=== PATIENT | male | born 1935 | race Caucasian/White ===

== ENCOUNTER 2018-06-17 14:03 | Outpatient (REF) | payer MEDICARE, MEDICAID, SELFPAY ==
[2018-06-17 21:02] LABS: Abs Immature Grans 0.03 k/cumm (0.0-0.09); Absolute Basophil Count 0.03 k/cumm (0.0-0.2); Absolute Lymphocyte Count 1.11 k/cumm (1.2-3.4); Absolute Monocyte Count 1.03 k/cumm (0.11-0.7); Absolute Neutrophil Count 7.17 k/cumm (1.2-6.7); Basophils % 0.3; Eosinophils % 1.1; HCT 35.8 % (40.0-50.0); Immature Grans % 0.3; Lymphocytes % 11.7; Mean Corp. HGB Concentration 33.5 g/dL (32.0-36.0); Mean Corpuscular Hemoglobin 29.3 pg (27.0-33.0); Mean Corpuscular Volume 87.5 fL (80-95); Mean Platelet Volume 11.5 fL (8.0-11.0); Monocytes % 10.9; Neutrophils % 75.7; Platelet Count 223 x1000/uL (130-400); RBC 4.09 m/cumm (4.50-6.00); RBC Distribution Width 13.2 % (11.8-14.1); White Blood Cell Count 9.47 k/cumm (4.4-10.8)
[2018-06-17 21:32] LABS: C-Reactive Protein 10.95 mg/dL (0.0-0.3)
[2018-06-17 21:48] LABS: ESR 73 MM/HR (1-20)
== END 2018-06-17 14:23 ==
LOC: NCHCN 14:03
PROVIDERS: PCP Nurse Practitioner Family; Visit Provider Nurse Practitioner Family
DX: M25.512 Pain in left shoulder (principal); M89.8X8 Other specified disorders of bone, other site
CPT/HCPCS: 85652; 85025; 86140

== ENCOUNTER 2018-07-28 11:27 | Outpatient (REF) | payer MEDICARE, MEDICAID, SELFPAY ==
[2018-07-28 22:08] LABS: Abs Immature Grans 0.03 k/cumm (0.0-0.09); Absolute Basophil Count 0.03 k/cumm (0.0-0.2); Absolute Lymphocyte Count 1.68 k/cumm (1.2-3.4); Absolute Monocyte Count 0.58 k/cumm (0.11-0.7); Absolute Neutrophil Count 4.19 k/cumm (1.2-6.7); Basophils % 0.5; Eosinophils % 1.5; HCT 37.5 % (40.0-50.0); HGB 12.4 g/dL (13.5-17.5); Immature Grans % 0.5; Lymphocytes % 25.4; Mean Corp. HGB Concentration 33.1 g/dL (32.0-36.0); Mean Corpuscular Hemoglobin 28.6 pg (27.0-33.0); Mean Corpuscular Volume 86.4 fL (80-95); Mean Platelet Volume 12.2 fL (8.0-11.0); Monocytes % 8.8; Neutrophils % 63.3; Platelet Count 176 x1000/uL (130-400); RBC 4.34 m/cumm (4.50-6.00); RBC Distribution Width 14.4 % (11.8-14.1); White Blood Cell Count 6.61 k/cumm (4.4-10.8)
[2018-07-28 22:13] LABS: ALT 16 U/L (12-78); AST 12 U/L (15-37); Albumin 3.8 g/dL (3.4-5.0); Alkaline Phosphatase 97 U/L (46-116); Anion Gap 8.1 mmol/L (3-11); BUN 16 mg/dL (7-18); Bilirubin, Total 0.6 mg/dL (0.2-1.0); CO2 29.9 mmol/L (21.0-32.0); CREATININE 1.16 mg/dL (0.70-1.30); Calcium 9.2 mg/dL (8.5-10.1); Chloride 101 mmol/L (98-107); Glucose 102 mg/dL (70-100); LDH 167 U/L (85-227); Potassium 3.6 mmol/L (3.5-5.1); Sodium 139 mmol/L (136-145)
== END 2018-07-28 11:47 ==
LOC: LBN 11:27
PROVIDERS: PCP Nurse Practitioner Family; Visit Provider Internal Medicine Hematology & Oncology
DX: C82.08 Follicular lymphoma grade I, lymph nodes of multiple sites (principal)
CPT/HCPCS: 80053; 83615; 85025

== ENCOUNTER 2018-08-20 15:58 | Outpatient (REF) | payer MEDICARE, MEDICAID, SELFPAY ==
[2018-08-20 21:19] LABS: Abs Immature Grans 0.01 k/cumm (0.0-0.09); Absolute Basophil Count 0.03 k/cumm (0.0-0.2); Absolute Eosinophil Count 0.11 k/cumm (0.0-0.7); Absolute Lymphocyte Count 1.44 k/cumm (1.2-3.4); Absolute Monocyte Count 0.65 k/cumm (0.11-0.7); Absolute Neutrophil Count 5.32 k/cumm (1.2-6.7); Basophils % 0.4; Eosinophils % 1.5; HCT 36.5 % (40.0-50.0); HGB 12.1 g/dL (13.5-17.5); Immature Grans % 0.1; Mean Corp. HGB Concentration 33.2 g/dL (32.0-36.0); Mean Corpuscular Hemoglobin 28.3 pg (27.0-33.0); Mean Corpuscular Volume 85.3 fL (80-95); Mean Platelet Volume 11.4 fL (8.0-11.0); Monocytes % 8.6; Neutrophils % 70.4; Platelet Count 240 x1000/uL (130-400); RBC 4.28 m/cumm (4.50-6.00); RBC Distribution Width 14.1 % (11.8-14.1); White Blood Cell Count 7.56 k/cumm (4.4-10.8)
[2018-08-20 22:00] LABS: ESR 29 MM/HR (1-20)
== END 2018-08-20 16:18 ==
LOC: NCHCN 15:58
PROVIDERS: PCP Nurse Practitioner Family; Visit Provider Family Medicine
DX: R53.83 Other fatigue (principal)
CPT/HCPCS: 85652; 84443; 85025

== ENCOUNTER 2019-02-18 09:49 | Outpatient (REF) | payer MEDICARE, MEDICAID, SELFPAY ==
[2019-02-18 21:21] LABS: Abs Immature Grans 0.01 k/cumm (0.0-0.09); Absolute Basophil Count 0.03 k/cumm (0.0-0.2); Absolute Eosinophil Count 0.12 k/cumm (0.0-0.7); Absolute Monocyte Count 0.36 k/cumm (0.11-0.7); Absolute Neutrophil Count 3.05 k/cumm (1.2-6.7); Basophils % 0.6; Eosinophils % 2.5; HCT 40.4 % (40.0-50.0); HGB 13.3 g/dL (13.5-17.5); Immature Grans % 0.2; Lymphocytes % 25.2; Mean Corp. HGB Concentration 32.9 g/dL (32.0-36.0); Mean Corpuscular Hemoglobin 28.3 pg (27.0-33.0); Mean Platelet Volume 11.6 fL (8.0-11.0); Monocytes % 7.5; Platelet Count 224 x1000/uL (130-400); RBC Distribution Width 14.2 % (11.8-14.1); White Blood Cell Count 4.77 k/cumm (4.4-10.8)
[2019-02-18 21:30] LABS: ALT 22 U/L (12-78); AST 16 U/L (15-37); Albumin 3.9 g/dL (3.4-5.0); Alkaline Phosphatase 120 U/L (46-116); Anion Gap 7.2 mmol/L (3-11); BUN 13 mg/dL (7-18); Bilirubin, Total 0.4 mg/dL (0.2-1.0); CO2 28.8 mmol/L (21.0-32.0); CREATININE 0.92 mg/dL (0.70-1.30); Calcium 8.8 mg/dL (8.5-10.1); Chloride 105 mmol/L (98-107); Glucose 127 mg/dL (70-100); Potassium 4.3 mmol/L (3.5-5.1); Sodium 141 mmol/L (136-145); Total Protein 6.9 g/dL (6.4-8.2)
[2019-02-18 21:59] LABS: LDH 177 U/L (85-227)
== END 2019-02-18 10:09 ==
LOC: LBN 09:49
PROVIDERS: PCP Nurse Practitioner Family; Visit Provider Internal Medicine Hematology & Oncology
DX: C82.08 Follicular lymphoma grade I, lymph nodes of multiple sites (principal)
CPT/HCPCS: 80053; 83615; 85025

== ENCOUNTER 2019-08-16 21:29 | Outpatient (REF) | payer MEDICARE, MEDICAID, SELFPAY ==
[2019-08-16 21:48] LABS: Abs Immature Grans 0.03 k/cumm (0.0-0.09); Absolute Basophil Count 0.04 k/cumm (0.0-0.2); Absolute Lymphocyte Count 1.54 k/cumm (1.2-3.4); Absolute Monocyte Count 0.48 k/cumm (0.11-0.7); Absolute Neutrophil Count 3.03 k/cumm (1.2-6.7); Basophils % 0.8; Eosinophils % 3.8; HCT 36.9 % (40.0-50.0); Immature Grans % 0.6 %; Lymphocytes % 28.9; Mean Corp. HGB Concentration 32.5 g/dL (32.0-36.0); Mean Corpuscular Hemoglobin 28.8 pg (27.0-33.0); Mean Corpuscular Volume 88.5 fL (80-95); Mean Platelet Volume 11.8 fL (8.0-11.0); Neutrophils % 56.9; Platelet Count 223 x1000/uL (130-400); RBC 4.17 m/cumm (4.50-6.00); RBC Distribution Width 14.2 % (11.8-14.1); White Blood Cell Count 5.32 k/cumm (4.4-10.8)
[2019-08-16 22:40] LABS: ALT 18 U/L (16-63); AST 13 U/L (15-37); Albumin 3.7 g/dL (3.4-5.0); Alkaline Phosphatase 111 U/L (46-116); Anion Gap 8.4 mmol/L (3-11); BUN 13 mg/dL (7-18); Bilirubin, Total 0.4 mg/dL (0.2-1.0); CO2 27.6 mmol/L (21.0-32.0); CREATININE 1.11 mg/dL (0.70-1.30); Calcium 8.8 mg/dL (8.5-10.1); Chloride 104 mmol/L (98-107); Glucose 172 mg/dL (74-106); LDH 174 U/L (85-227); Potassium 4.1 mmol/L (3.5-5.1); Sodium 140 mmol/L (136-145); Total Protein 6.6 g/dL (6.4-8.2)
== END 2019-08-16 21:49 ==
LOC: LBN 21:29
PROVIDERS: PCP Nurse Practitioner Family; Visit Provider Internal Medicine Hematology & Oncology
DX: C82.08 Follicular lymphoma grade I, lymph nodes of multiple sites (principal)
CPT/HCPCS: 80053; 83615; 85025

== ENCOUNTER 2019-08-31 01:09 | Outpatient (CLI) | payer MEDICARE, MEDICAID, SELFPAY ==
[2019-08-31 09:23] LABS: ALT 17 U/L (16-63); AST 16 U/L (15-37); Albumin 3.8 g/dL (3.4-5.0); Alkaline Phosphatase 111 U/L (46-116); Anion Gap 9.8 mmol/L (3-11); BUN 17 mg/dL (7-18); Bilirubin, Total 0.4 mg/dL (0.2-1.0); CO2 28.2 mmol/L (21.0-32.0); CREATININE 1.02 mg/dL (0.70-1.30); Calcium 8.7 mg/dL (8.5-10.1); Chloride 102 mmol/L (98-107); Glucose 131 mg/dL (74-106); Potassium 3.9 mmol/L (3.5-5.1); Sodium 140 mmol/L (136-145); Total Protein 7.2 g/dL (6.4-8.2)
--- NOTE | 2019-08-31 10:19 | DI.CT_ITS ---
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 TECHNIQUE: Imaging Protocol: Axial computed tomography images of the with coronal and sagittal refo rmatted images were created and reviewed CONTRAST MATERIAL: Intravenous: Omnipaque 350 Contrast volume:100 mL contrast route:IV - Oral: Yes COMPARISON: The prior examinations were not available at this time for comparison. FINDINGS: CHEST: Tracheobronchial tree: Patent where visualized. Mediastinum and Lo: No dominant adenopathy or fluid collection. Pulmonary parenchyma: No consolidation or dominant measurable mass. There is scarring in the right a pex. Mild emphysematous changes are seen in the lungs. Dependent atelectatic changes are seen in th e lung bases. Pleura: No effusion or pneumothorax. Aorta: Mild atherosclerosis. No aneurysmal dilatation. Heart: No cardiomegaly or significant pericardial effusion. Mild coronary artery calcification. Lymph nodes: Within normal limits. Bones: Chronic changes. No aggressive osseous lesion is identified. ABDOMEN: Liver: Normal density. No measurable mass. Gallbladder and biliary tract: No radiodense calculus or dilation. Pancreas: Normal density, no abnormal calcifications or inflammatory process. Spleen: Normal. Note is made of a small accessory spleen. Kidneys: Normal size, contour and axis. No radiodense stones or obstructive uropathy. Bilateral simpl e renal cysts. Adrenal glands: No masses seen. Lymph nodes: There is prominent retroperitoneal adenopathy. Enlarged left periaortic adenopathy is p resent, the largest aggregate measures 2.9 cm transverse by 1.6 cm AP by 4.7 cm craniocaudad. (Serie s 9, image 380). There are enlarged lymph nodes in the central mesentery. The largest measures 2.3 x 1.0 cm. (Series 9, image 414). There is aortic caval adenopathy present. The largest measures 1 .9 x 0.7 cm. (Series 9, image 406). Aorta: Abdominal portion non-dilated. Mild atherosclerosis. Retroaortic left renal vein. PELVIS: Bladder: Incompletely distended. The apparent bowel wall thickening is likely due to decreased diste nsion. Inflammatory or infectious process cannot be entirely excluded. Please correlate clinically. Bowel: Colonic diverticulosis. No evidence of acute diverticulitis. No evidence of bowel obstruction . Normal appendix is visualized. Peritoneal cavity: No ascites, collection or mesenteric inflammatory response. Reproductive organs: Within normal limits. Bones: Degenerative changes present IMPRESSION: 1. Retroperitoneal and mesenteric adenopathy. 2. No evidence of thoracic adenopathy. DATA REPOSITORY: All CT scans at this facility are submitted to the National Radiology Data Registry (NRDR) Dose Index Registry (DIR) with the [employer] ([employer]). RADIATION OPTIMIZATION: All CT scans at this facility use at least one of these dose optimization te chniques: automated exposure control; mA and/or kV adjustment per patient size (includes targeted exa ms where dose is matched to clinical indication); or iterative reconstruction.
[2019-08-31] MEDS: Omnipaque 350 MG/ML 100 ML BTL IJ (10:21)
[2019-08-31] MEDS: Omnipaque 350 MG/ML 50 ML BTL PO (10:22)
== END 2019-08-31 01:29 ==
PROVIDERS: Internal Medicine Hematology & Oncology; PCP Nurse Practitioner Family; Visit Provider Nurse Practitioner Family
DX: C82.08 Follicular lymphoma grade I, lymph nodes of multiple sites (principal); J98.11 Atelectasis; N28.1 Cyst of kidney, acquired; R59.0 Localized enlarged lymph nodes
CPT/HCPCS: 74177; 80053; 71260; J3490; Q9967

== ENCOUNTER 2020-02-21 10:20 | Outpatient (REF) | payer MEDICARE, MEDICAID, SELFPAY ==
[2020-02-21 21:04] LABS: Abs Immature Grans 0.03 10^3/uL (0.0-0.06); Absolute Basophil Count 0.07 10^3/uL (0.0-0.2); Absolute Eosinophil Count 0.16 10^3/uL (0.0-0.7); Absolute Lymphocyte Count 1.41 10^3/uL (1.2-3.4); Absolute Monocyte Count 0.58 10^3/uL (0.1-0.8); Absolute Neutrophil Count 4.64 10^3/uL (1.2-6.7); Eosinophils % 2.3; HCT 38.7 % (40.0-50.0); HGB 12.7 g/dL (13.5-17.5); Immature Grans % 0.4; Lymphocytes % 20.5; MCH 29.1 pg (27.0-33.0); MCHC 32.8 % (32.0-36.0); MCV 88.6 fL (80-95); MPV 11.5 fL (8.0-11.0); Monocytes % 8.4; Neutrophils % 67.4; Nucleated RBC 0 %; Platelet Count 210 10^3/uL (130-400); RBC 4.37 10^6/uL (4.36-5.78); RDW 13.5 % (11.8-14.1); RDW-SD 43.7 fL; WBC 6.89 10^3/uL (4.4-10.8)
[2020-02-21 21:14] LABS: ALT 24 U/L (16-63); AST 17 U/L (15-37); Alkaline Phosphatase 102 U/L (46-116); Anion Gap 9.3 mmol/L (3-11); BUN 19 mg/dL (7-18); Bilirubin, Total 0.5 mg/dL (0.2-1.0); CO2 26.7 mmol/L (21.0-32.0); CREATININE 1.02 mg/dL (0.70-1.30); Chloride 103 mmol/L (98-107); Glucose 121 mg/dL (74-106); LDH 182 U/L (85-227); Potassium 4.2 mmol/L (3.5-5.1); Sodium 139 mmol/L (136-145); Total Protein 7.1 g/dL (6.4-8.2)
== END 2020-02-21 10:40 ==
LOC: LBN 10:20
PROVIDERS: PCP Nurse Practitioner Family; Visit Provider Internal Medicine Hematology & Oncology
DX: C82.08 Follicular lymphoma grade I, lymph nodes of multiple sites (principal)
CPT/HCPCS: 80053; 83615; 85025

== ENCOUNTER 2020-02-27 13:54 | Outpatient (REF) | payer MEDICARE, MEDICAID, SELFPAY ==
[2020-02-27 20:50] LABS: Calculated LDL 99 mg/dL (<100); Cholesterol 208 mg/dL (<200); HDL Cholesterol 42 mg/dL (40-60); Triglyceride 336 mg/dL (<150)
== END 2020-02-27 14:14 ==
LOC: NCHCN 13:54
PROVIDERS: PCP Nurse Practitioner Family; Visit Provider Internal Medicine
DX: E78.5 Hyperlipidemia, unspecified (principal)
CPT/HCPCS: 80061

== ENCOUNTER 2020-06-20 13:33 | Outpatient (REF) | payer MEDICARE, MEDICAID, SELFPAY ==
[2020-06-20 22:37] LABS: Cholesterol 250 mg/dL (<200); HDL Cholesterol 43 mg/dL (40-60); Triglyceride 437 mg/dL (<150)
[2020-06-20 23:04] LABS: LDL CHOLESTEROL 99 mg/dL (<100)
[2020-06-21 19:17] LABS: PSA, Diagnostic 5.4 ng/mL (0.0-6.5)
== END 2020-06-20 13:53 ==
LOC: NCHCN 13:33
PROVIDERS: PCP Nurse Practitioner Family; Visit Provider Internal Medicine
DX: E78.5 Hyperlipidemia, unspecified (principal); C61 Malignant neoplasm of prostate
CPT/HCPCS: 80061; 83721; 84153

== ENCOUNTER 2020-07-10 16:49 | Outpatient (REF) | payer MEDICARE, MEDICAID, SELFPAY ==
[2020-07-10 21:56] LABS: Anion Gap 10.1 mmol/L (3-11); BUN 17 mg/dL (7-18); CO2 26.9 mmol/L (21.0-32.0); CREATININE 1.02 mg/dL (0.70-1.30); Calcium 9.3 mg/dL (8.5-10.1); Chloride 103 mmol/L (98-107); Glucose 130 mg/dL (74-106); NT-proBNP 207 pg/mL (<300); Potassium 3.9 mmol/L (3.5-5.1); Sodium 140 mmol/L (136-145)
== END 2020-07-10 17:09 ==
LOC: LBN 16:49
PROVIDERS: PCP Nurse Practitioner Family; Visit Provider Internal Medicine Cardiovascular Disease
DX: R06.00 Dyspnea, unspecified (principal); I50.32 Chronic diastolic (congestive) heart failure; I25.10 Atherosclerotic heart disease of native coronary artery without angina pectoris
CPT/HCPCS: 80048; 83880

== ENCOUNTER 2020-10-29 10:22 | Outpatient (REF) | payer MEDICARE, MEDICAID, SELFPAY ==
[2020-10-29 13:31] LABS: Abs Immature Grans 0.03 10^3/uL (0.0-0.06); Absolute Basophil Count 0.05 10^3/uL (0.0-0.2); Absolute Eosinophil Count 0.17 10^3/uL (0.0-0.7); Absolute Lymphocyte Count 1.37 10^3/uL (1.2-3.4); Absolute Monocyte Count 0.46 10^3/uL (0.1-0.8); Absolute Neutrophil Count 3.31 10^3/uL (1.2-6.7); Basophils % 0.9; Eosinophils % 3.2; HCT 37.6 % (40.0-50.0); HGB 12.5 g/dL (13.5-17.5); Immature Grans % 0.6; Lymphocytes % 25.4; MCH 29.2 pg (27.0-33.0); MCHC 33.2 % (32.0-36.0); MCV 87.9 fL (80-95); MPV 11.6 fL (8.0-11.0); Monocytes % 8.5; Neutrophils % 61.4; Nucleated RBC 0 %; Platelet Count 189 10^3/uL (130-400); RBC 4.28 10^6/uL (4.36-5.78); RDW 13.7 % (11.8-14.1); RDW-SD 44.2 fL; WBC 5.39 10^3/uL (4.4-10.8)
[2020-10-29 13:42] LABS: Iron 60 ug/dL (65-175); Total Iron Binding Capacity 305 ug/dL (250-450); Transferrin Sat 20 % (20-55)
[2020-10-29 13:49] LABS: ALT 27 U/L (16-63); AST 19 U/L (15-37); Alkaline Phosphatase 110 U/L (46-116); Anion Gap 10.4 mmol/L (3-11); BUN 18 mg/dL (7-18); Bilirubin, Total 0.4 mg/dL (0.2-1.0); CO2 27.6 mmol/L (21.0-32.0); Calcium 9.1 mg/dL (8.5-10.1); Chloride 102 mmol/L (98-107); Glucose 137 mg/dL (74-106); LDH 199 U/L (85-227); NT-proBNP 168 pg/mL (<300); Potassium 4.2 mmol/L (3.5-5.1); Sodium 140 mmol/L (136-145); Total Protein 7.1 g/dL (6.4-8.2)
[2020-10-29 14:29] LABS: Cholesterol 235 mg/dL (<200); Ferritin 132 ng/mL (26-388); HDL Cholesterol 38 mg/dL (40-60); Triglyceride 417 mg/dL (<150)
[2020-10-29 14:39] LABS: LDL CHOLESTEROL 89 mg/dL (<100)
[2020-10-29 15:19] LABS: Hemoglobin A1C 6.3 % (<5.7)
[2020-10-29 22:06] LABS: PSA, Diagnostic 7.4 ng/mL (0.0-6.5)
== END 2020-10-29 10:23 | disposition home or self-care (01) ==
LOC: LBN 10:22
PROVIDERS: PCP Nurse Practitioner Family; Visit Provider Internal Medicine Cardiovascular Disease
DX: I25.10 Atherosclerotic heart disease of native coronary artery without angina pectoris (principal); C61 Malignant neoplasm of prostate; I95.89 Other hypotension; R06.00 Dyspnea, unspecified; R73.9 Hyperglycemia, unspecified
CPT/HCPCS: 80053; 80061; 83721; 82728; 83036; 83540; 83550; 83615; 83880; 84153; 85025

== ENCOUNTER 2021-02-22 09:59 | Outpatient (REF) | payer MEDICARE, MEDICAID, SELFPAY ==
[2021-02-22 22:48] LABS: PSA, Diagnostic 10.6 ng/mL (0.0-6.5)
== END 2021-02-22 10:00 | disposition home or self-care (01) ==
LOC: LBN 09:59
PROVIDERS: PCP Internal Medicine; Visit Provider Radiology Radiation Oncology
DX: C61 Malignant neoplasm of prostate (principal)
CPT/HCPCS: 84153

== ENCOUNTER 2021-04-23 14:01 | Outpatient (REF) | payer MEDICARE, MEDICAID, SELFPAY ==
[2021-04-23 14:58] LABS: Abs Immature Grans 0.01 10^3/uL (0.0-0.06); Absolute Basophil Count 0.05 10^3/uL (0.0-0.2); Absolute Eosinophil Count 0.08 10^3/uL (0.0-0.7); Absolute Monocyte Count 0.46 10^3/uL (0.1-0.8); Absolute Neutrophil Count 3.59 10^3/uL (1.2-6.7); Basophils % 0.9; Eosinophils % 1.4; HCT 37.6 % (40.0-50.0); HGB 12.4 g/dL (13.5-17.5); Immature Grans % 0.2; MCH 28.4 pg (27.0-33.0); MCV 86.2 fL (80-95); MPV 11.5 fL (8.0-11.0); Monocytes % 8.2; Neutrophils % 64.3; Nucleated RBC 0 %; Platelet Count 187 10^3/uL (130-400); RBC 4.36 10^6/uL (4.36-5.78); RDW 13.6 % (11.8-14.1); RDW-SD 43.8 fL; WBC 5.59 10^3/uL (4.4-10.8)
[2021-04-23 15:02] LABS: ALT 23 U/L (16-63); AST 16 U/L (15-37); Albumin 3.9 g/dL (3.4-5.0); Alkaline Phosphatase 112 U/L (46-116); Anion Gap 7.1 mmol/L (3-11); BUN 17 mg/dL (7-18); Bilirubin, Total 0.4 mg/dL (0.2-1.0); CO2 28.9 mmol/L (21.0-32.0); Calcium 8.8 mg/dL (8.5-10.1); Chloride 104 mmol/L (98-107); Glucose 121 mg/dL (74-106); LDH 167 U/L (85-227); Sodium 140 mmol/L (136-145)
[2021-04-23 22:23] LABS: PSA, Diagnostic 10.8 ng/mL (0.0-6.5)
[2021-04-27 11:02] LABS: Testosterone, Total 11 ng/dL (240-950)
== END 2021-04-23 14:02 | disposition home or self-care (01) ==
LOC: LBN 14:01
PROVIDERS: PCP Internal Medicine; Visit Provider Internal Medicine Hematology & Oncology
DX: C61 Malignant neoplasm of prostate (principal); C82.08 Follicular lymphoma grade I, lymph nodes of multiple sites
CPT/HCPCS: 80053; 84403; 83615; 84153; 85025

== ENCOUNTER 2021-10-01 01:25 | Outpatient (CLI) | payer MEDICARE, MEDICAID, SELFPAY ==
[2021-10-01 13:04] LABS: Abs Immature Grans 0.04 10^3/uL (0.0-0.06); Absolute Basophil Count 0.07 10^3/uL (0.0-0.2); Absolute Eosinophil Count 0.22 10^3/uL (0.0-0.7); Absolute Lymphocyte Count 1.84 10^3/uL (1.2-3.4); Absolute Monocyte Count 0.64 10^3/uL (0.1-0.8); Basophils % 0.8; Eosinophils % 2.6; HCT 38.1 % (40.0-50.0); HGB 12.8 g/dL (13.5-17.5); Immature Grans % 0.5; Lymphocytes % 21.6; MCH 29.2 pg (27.0-33.0); MCHC 33.6 % (32.0-36.0); MCV 86.8 fL (80-95); MPV 11.1 fL (8.0-11.0); Monocytes % 7.5; Nucleated RBC 0 %; Platelet Count 179 10^3/uL (130-400); RBC 4.39 10^6/uL (4.36-5.78); RDW 13.6 % (11.8-14.1); RDW-SD 43.2 fL; WBC 8.51 10^3/uL (4.4-10.8)
[2021-10-01 13:13] LABS: ALT 21 U/L (16-63); AST 13 U/L (15-37); Alkaline Phosphatase 101 U/L (46-116); Anion Gap 7.2 mmol/L (3-11); BUN 14 mg/dL (7-18); Bilirubin, Total 0.5 mg/dL (0.2-1.0); CO2 26.8 mmol/L (21.0-32.0); Calcium 8.7 mg/dL (8.5-10.1); Chloride 103 mmol/L (98-107); Glucose 110 mg/dL (74-106); Potassium 4.1 mmol/L (3.5-5.1); Sodium 137 mmol/L (136-145); Total Protein 7.6 g/dL (6.4-8.2)
[2021-10-04 11:44] LABS: Testosterone, Total <7.0 ng/dL (240-950)
== END 2021-10-01 01:26 | disposition home or self-care (01) ==
PROVIDERS: PCP Internal Medicine; Visit Provider Internal Medicine
DX: C61 Malignant neoplasm of prostate (principal); C77.2 Secondary and unspecified malignant neoplasm of intra-abdominal lymph nodes
CPT/HCPCS: 36415; 80053; 84153; 84403; 85025

== ENCOUNTER 2021-10-22 04:24 | Outpatient (CLI) | payer MEDICARE, MEDICAID, SELFPAY ==
[2021-10-22 13:13] LABS: Abs Immature Grans 0.01 10^3/uL (0.0-0.06); Absolute Basophil Count 0.05 10^3/uL (0.0-0.2); Absolute Eosinophil Count 0.19 10^3/uL (0.0-0.7); Absolute Lymphocyte Count 1.65 10^3/uL (1.2-3.4); Absolute Monocyte Count 0.47 10^3/uL (0.1-0.8); Absolute Neutrophil Count 3.67 10^3/uL (1.2-6.7); Basophils % 0.8; Eosinophils % 3.1; HCT 37.4 % (40.0-50.0); HGB 12.5 g/dL (13.5-17.5); Immature Grans % 0.2; Lymphocytes % 27.3; MCH 29.1 pg (27.0-33.0); MCHC 33.4 % (32.0-36.0); MCV 87.2 fL (80-95); MPV 10.5 fL (8.0-11.0); Monocytes % 7.8; Neutrophils % 60.8; Nucleated RBC 0 %; Platelet Count 182 10^3/uL (130-400); RBC 4.29 10^6/uL (4.36-5.78); RDW 13.9 % (11.8-14.1); RDW-SD 44.8 fL; WBC 6.04 10^3/uL (4.4-10.8)
[2021-10-22 13:40] LABS: ALT 23 U/L (16-63); AST 16 U/L (15-37); Albumin 3.9 g/dL (3.4-5.0); Alkaline Phosphatase 97 U/L (46-116); Anion Gap 5.9 mmol/L (3-11); BUN 14 mg/dL (7-18); Bilirubin, Total 0.6 mg/dL (0.2-1.0); CO2 28.1 mmol/L (21.0-32.0); Calcium 8.7 mg/dL (8.5-10.1); Chloride 104 mmol/L (98-107); Glucose 147 mg/dL (74-106); Sodium 138 mmol/L (136-145); Total Protein 7.2 g/dL (6.4-8.2)
[2021-10-23 15:01] LABS: PSA, Ultrasensitive 17.2 ng/mL (<= 7.2)
[2021-10-27 13:01] LABS: Testosterone, Total <7.0 ng/dL (240-950)
== END 2021-10-22 04:25 | disposition home or self-care (01) ==
LOC: LBO 04:24
PROVIDERS: PCP Internal Medicine; Visit Provider Internal Medicine
DX: C61 Malignant neoplasm of prostate (principal); C77.2 Secondary and unspecified malignant neoplasm of intra-abdominal lymph nodes
CPT/HCPCS: 36415; 80053; 84153; 84403; 85025

== ENCOUNTER 2021-11-19 01:59 | Outpatient (CLI) | payer MEDICARE, MEDICAID, SELFPAY ==
[2021-11-19 10:09] LABS: Abs Immature Grans 0.03 10^3/uL (0.0-0.06); Absolute Basophil Count 0.04 10^3/uL (0.0-0.2); Absolute Eosinophil Count 0.16 10^3/uL (0.0-0.7); Absolute Lymphocyte Count 1.57 10^3/uL (1.2-3.4); Absolute Monocyte Count 0.57 10^3/uL (0.1-0.8); Absolute Neutrophil Count 3.49 10^3/uL (1.2-6.7); Basophils % 0.7; Eosinophils % 2.7; HCT 38.5 % (40.0-50.0); HGB 12.6 g/dL (13.5-17.5); Immature Grans % 0.5; Lymphocytes % 26.8; MCH 28.7 pg (27.0-33.0); MCHC 32.7 % (32.0-36.0); MCV 88 fL (80-95); MPV 10.7 fL (8.0-11.0); Monocytes % 9.7; Neutrophils % 59.6; Platelet Count 171 10^3/uL (130-400); RBC 4.39 10^6/uL (4.36-5.78); RDW 13.5 % (11.8-14.1); RDW-SD 43.8 fL; WBC 5.86 10^3/uL (4.4-10.8)
[2021-11-19 10:22] LABS: ALT 19 U/L (16-63); AST 17 U/L (15-37); Albumin 3.8 g/dL (3.4-5.0); Alkaline Phosphatase 112 U/L (46-116); Anion Gap 7.2 mmol/L (3-11); BUN 16 mg/dL (7-18); Bilirubin, Total 0.5 mg/dL (0.2-1.0); CO2 27.8 mmol/L (21.0-32.0); CREATININE 0.9 mg/dL (0.70-1.30); Calcium 8.5 mg/dL (8.5-10.1); Chloride 104 mmol/L (98-107); Glucose 133 mg/dL (74-106); LDH 186 U/L (85-227); Potassium 4.1 mmol/L (3.5-5.1); Sodium 139 mmol/L (136-145); Total Protein 7.4 g/dL (6.4-8.2)
[2021-11-20 16:04] LABS: PSA, Ultrasensitive 14.7 ng/mL (<= 7.2)
[2021-11-25 19:39] LABS: Testosterone, Total <7.0 ng/dL (240-950)
== END 2021-11-19 02:00 | disposition home or self-care (01) ==
LOC: LBO 01:59
PROVIDERS: PCP Internal Medicine; Visit Provider Internal Medicine Hematology & Oncology
DX: C61 Malignant neoplasm of prostate (principal); C82.08 Follicular lymphoma grade I, lymph nodes of multiple sites
CPT/HCPCS: 36415; 80053; 84153; 84403; 83615; 85025

== ENCOUNTER 2021-11-19 02:00 | Outpatient (CLI) | payer MEDICARE, MEDICAID, SELFPAY | END 2021-11-19 02:01 | disposition home or self-care (01) | LOC: LBO 02:00 | PROVIDERS: PCP Internal Medicine; Visit Provider Internal Medicine Hematology & Oncology ==

== ENCOUNTER 2021-12-17 03:03 | Outpatient (CLI) | payer MEDICARE, MEDICAID, SELFPAY | END 2021-12-17 03:04 | disposition home or self-care (01) | LOC: LBO 03:03 | PROVIDERS: PCP Internal Medicine; Visit Provider Internal Medicine ==

== ENCOUNTER 2021-12-18 18:20 | Outpatient (CLI) | payer MEDICARE, MEDICAID, SELFPAY ==
[2021-12-18 10:46] LABS: Abs Immature Grans 0.02 10^3/uL (0.0-0.06); Absolute Basophil Count 0.04 10^3/uL (0.0-0.2); Absolute Eosinophil Count 0.13 10^3/uL (0.0-0.7); Absolute Lymphocyte Count 1.36 10^3/uL (1.2-3.4); Basophils % 0.6; HCT 39.4 % (40.0-50.0); HGB 13.2 g/dL (13.5-17.5); Immature Grans % 0.3; Lymphocytes % 21.1; MCH 29.1 pg (27.0-33.0); MCHC 33.5 % (32.0-36.0); MCV 87 fL (80-95); MPV 10.7 fL (8.0-11.0); Monocytes % 7.8; Neutrophils % 68.2; Platelet Count 172 10^3/uL (130-400); RBC 4.54 10^6/uL (4.36-5.78); RDW 13.4 % (11.8-14.1); RDW-SD 42.7 fL; WBC 6.45 10^3/uL (4.4-10.8)
[2021-12-18 11:02] LABS: ALT 24 U/L (16-63); AST 13 U/L (15-37); Albumin 4.1 g/dL (3.4-5.0); Alkaline Phosphatase 109 U/L (46-116); Anion Gap 7.6 mmol/L (3-11); BUN 14 mg/dL (7-18); Bilirubin, Total 0.6 mg/dL (0.2-1.0); CO2 27.4 mmol/L (21.0-32.0); Calcium 8.9 mg/dL (8.5-10.1); Chloride 103 mmol/L (98-107); Glucose 127 mg/dL (74-106); LDH 155 U/L (85-227); Potassium 3.8 mmol/L (3.5-5.1); Sodium 138 mmol/L (136-145); Total Protein 7.7 g/dL (6.4-8.2)
[2021-12-19 18:45] LABS: PSA, Ultrasensitive 16.3 ng/mL (<= 7.2)
[2021-12-21 10:34] LABS: Testosterone, Total <7.0 ng/dL (240-950)
== END 2021-12-18 18:21 | disposition home or self-care (01) ==
LOC: LBO 18:23
PROVIDERS: PCP Internal Medicine; Visit Provider Internal Medicine
DX: C61 Malignant neoplasm of prostate (principal); C82.08 Follicular lymphoma grade I, lymph nodes of multiple sites
CPT/HCPCS: 36415; 80053; 84153; 84403; 83615; 85025

== ENCOUNTER 2022-03-12 02:42 | Outpatient (CLI) | payer MEDICARE, MEDICAID, SELFPAY ==
[2022-03-12 08:24] LABS: Abs Immature Grans 0.01 10^3/uL (0.0-0.06); Absolute Basophil Count 0.06 10^3/uL (0.0-0.2); Absolute Eosinophil Count 0.28 10^3/uL (0.0-0.7); Absolute Lymphocyte Count 1.37 10^3/uL (1.2-3.4); Absolute Monocyte Count 0.56 10^3/uL (0.1-0.8); Absolute Neutrophil Count 3.39 10^3/uL (1.2-6.7); Basophils % 1.1; Eosinophils % 4.9; HCT 37.4 % (40.0-50.0); HGB 12.6 g/dL (13.5-17.5); Immature Grans % 0.2; Lymphocytes % 24.2; MCH 29.3 pg (27.0-33.0); MCHC 33.7 % (32.0-36.0); MCV 87 fL (80-95); MPV 10.9 fL (8.0-11.0); Monocytes % 9.9; Neutrophils % 59.7; Platelet Count 176 10^3/uL (130-400); RDW 13.5 % (11.8-14.1); RDW-SD 42.9 fL; WBC 5.67 10^3/uL (4.4-10.8)
[2022-03-12 09:04] LABS: ALT 22 U/L (16-63); AST 15 U/L (15-37); Albumin 3.8 g/dL (3.4-5.0); Alkaline Phosphatase 100 U/L (46-116); Anion Gap 10.5 mmol/L (3-11); BUN 17 mg/dL (7-18); Bilirubin, Total 0.4 mg/dL (0.2-1.0); CO2 28.5 mmol/L (21.0-32.0); CREATININE 0.9 mg/dL (0.70-1.30); Calcium 8.7 mg/dL (8.5-10.1); Chloride 103 mmol/L (98-107); Glucose 128 mg/dL (74-106); Potassium 4.1 mmol/L (3.5-5.1); Sodium 142 mmol/L (136-145); Total Protein 7.5 g/dL (6.4-8.2)
[2022-03-13 14:30] LABS: PSA, Ultrasensitive 15.7 ng/mL (<= 7.2)
[2022-03-17 21:20] LABS: Testosterone, Total <7.0 ng/dL (240-950)
== END 2022-03-12 02:43 | disposition home or self-care (01) ==
LOC: LOS 02:43 → LBO 08:01
PROVIDERS: PCP Internal Medicine; Visit Provider Internal Medicine
DX: C61 Malignant neoplasm of prostate (principal); C77.2 Secondary and unspecified malignant neoplasm of intra-abdominal lymph nodes
CPT/HCPCS: 36415; 80053; 84153; 84403; 85025

== ENCOUNTER 2022-06-04 19:49 | Outpatient (REF) | payer MEDICARE, MEDICAID, SELFPAY ==
[2022-06-04 14:36] LABS: Abs Immature Grans 0.01 10^3/uL (0.0-0.06); Absolute Basophil Count 0.05 10^3/uL (0.0-0.2); Absolute Eosinophil Count 0.13 10^3/uL (0.0-0.7); Absolute Lymphocyte Count 1.51 10^3/uL (1.2-3.4); Absolute Monocyte Count 0.51 10^3/uL (0.1-0.8); Absolute Neutrophil Count 4.34 10^3/uL (1.2-6.7); Basophils % 0.8; HCT 37.6 % (40.0-50.0); HGB 12.5 g/dL (13.5-17.5); Immature Grans % 0.2; Lymphocytes % 23.1; MCH 28.9 pg (27.0-33.0); MCHC 33.2 % (32.0-36.0); MCV 87 fL (80-95); Monocytes % 7.8; Neutrophils % 66.1; Platelet Count 207 10^3/uL (130-400); RBC 4.32 10^6/uL (4.36-5.78); RDW 13.7 % (11.8-14.1); RDW-SD 43.7 fL; WBC 6.55 10^3/uL (4.4-10.8)
[2022-06-04 14:47] LABS: ALT 18 U/L (16-63); AST 22 U/L (15-37); Albumin 3.9 g/dL (3.4-5.0); Alkaline Phosphatase 99 U/L (46-116); Anion Gap 7.6 mmol/L (3-11); BUN 18 mg/dL (7-18); Bilirubin, Total 0.6 mg/dL (0.2-1.0); CO2 27.4 mmol/L (21.0-32.0); Chloride 103 mmol/L (98-107); Estimated GFR 73.76 (mL/min/1.73m2); Glucose 124 mg/dL (74-106); Potassium 4.1 mmol/L (3.5-5.1); Sodium 138 mmol/L (136-145); Total Protein 7.6 g/dL (6.4-8.2)
[2022-06-05 12:49] LABS: PSA, Ultrasensitive 21.8 ng/mL (<= 7.2)
[2022-06-11 00:56] LABS: Testosterone, Total <7.0 ng/dL (240-950)
== END 2022-06-04 19:50 | disposition home or self-care (01) ==
LOC: LBN 19:49
PROVIDERS: PCP Internal Medicine; Visit Provider Internal Medicine
DX: C61 Malignant neoplasm of prostate (principal); C77.2 Secondary and unspecified malignant neoplasm of intra-abdominal lymph nodes
CPT/HCPCS: 80053; 84153; 84403; 85025

== ENCOUNTER 2022-07-03 16:27 | Outpatient (REF) | payer MEDICARE, MEDICAID, SELFPAY ==
[2022-07-03 14:24] LABS: Abs Immature Grans 0.01 10^3/uL (0.0-0.06); Absolute Basophil Count 0.05 10^3/uL (0.0-0.2); Absolute Lymphocyte Count 1.57 10^3/uL (1.2-3.4); Absolute Monocyte Count 0.55 10^3/uL (0.1-0.8); Absolute Neutrophil Count 3.17 10^3/uL (1.2-6.7); Basophils % 0.9; Eosinophils % 3.6; HCT 37.2 % (40.0-50.0); HGB 12.5 g/dL (13.5-17.5); Immature Grans % 0.2; Lymphocytes % 28.3; MCH 29.2 pg (27.0-33.0); MCHC 33.6 % (32.0-36.0); MCV 87 fL (80-95); MPV 11.5 fL (8.0-11.0); Monocytes % 9.9; Neutrophils % 57.1; Platelet Count 165 10^3/uL (130-400); RBC 4.28 10^6/uL (4.36-5.78); RDW 13.2 % (11.8-14.1); RDW-SD 42.2 fL; WBC 5.55 10^3/uL (4.4-10.8)
[2022-07-03 14:52] LABS: ALT 20 U/L (16-63); AST 28 U/L (15-37); Albumin 3.8 g/dL (3.4-5.0); Alkaline Phosphatase 103 U/L (46-116); Anion Gap 10.4 mmol/L (3-11); BUN 17 mg/dL (7-18); Bilirubin, Total 0.4 mg/dL (0.2-1.0); CO2 24.6 mmol/L (21.0-32.0); CREATININE 1.1 mg/dL (0.70-1.30); Calcium 8.8 mg/dL (8.5-10.1); Chloride 101 mmol/L (98-107); Estimated GFR 65.38 (mL/min/1.73m2); Glucose 145 mg/dL (74-106); LDH 239 U/L (85-227); Potassium 4.1 mmol/L (3.5-5.1); Sodium 136 mmol/L (136-145); Total Protein 7.4 g/dL (6.4-8.2)
[2022-07-03 15:01] LABS: Cholesterol 230 mg/dL (<200); HDL Cholesterol 37 mg/dL (40-60); Triglyceride 555 mg/dL (<150); Vitamin B12 641 pg/mL (193-986)
[2022-07-03 15:14] LABS: LDL CHOLESTEROL 66 mg/dL (<100)
== END 2022-07-03 16:28 | disposition home or self-care (01) ==
LOC: NCHCN 16:27
PROVIDERS: Internal Medicine Hematology & Oncology; PCP Internal Medicine; Visit Provider Internal Medicine
DX: C82.18 Follicular lymphoma grade II, lymph nodes of multiple sites (principal); E78.5 Hyperlipidemia, unspecified; I10 Essential (primary) hypertension; R41.3 Other amnesia; C61 Malignant neoplasm of prostate
CPT/HCPCS: 80053; 80061; 83721; 82607; 83615; 85025

== ENCOUNTER 2022-08-29 10:01 | Outpatient (REF) | payer MEDICARE, MEDICAID, SELFPAY ==
[2022-08-29 13:54] LABS: Abs Immature Grans 0.03 10^3/uL (0.0-0.06); Absolute Basophil Count 0.06 10^3/uL (0.0-0.2); Absolute Eosinophil Count 0.14 10^3/uL (0.0-0.7); Absolute Lymphocyte Count 1.36 10^3/uL (1.2-3.4); Absolute Monocyte Count 0.49 10^3/uL (0.1-0.8); Eosinophils % 2.3; HCT 38.8 % (40.0-50.0); HGB 12.7 g/dL (13.5-17.5); Immature Grans % 0.5; Lymphocytes % 22.7; MCH 29.2 pg (27.0-33.0); MCHC 32.7 % (32.0-36.0); MCV 89 fL (80-95); MPV 11.4 fL (8.0-11.0); Monocytes % 8.2; Neutrophils % 65.3; Platelet Count 194 10^3/uL (130-400); RBC 4.35 10^6/uL (4.36-5.78); RDW 13.2 % (11.8-14.1); RDW-SD 43.6 fL; WBC 5.98 10^3/uL (4.4-10.8)
[2022-09-01 11:47] LABS: PSA, Ultrasensitive 21.1 ng/mL (<= 7.2)
== END 2022-08-29 10:02 | disposition home or self-care (01) ==
LOC: LBN 10:01
PROVIDERS: PCP Internal Medicine; Visit Provider Internal Medicine
DX: C61 Malignant neoplasm of prostate (principal); C77.2 Secondary and unspecified malignant neoplasm of intra-abdominal lymph nodes; C77.5 Secondary and unspecified malignant neoplasm of intrapelvic lymph nodes
CPT/HCPCS: 84153; 85025

== ENCOUNTER 2022-11-20 12:37 | Outpatient (REF) | payer MEDICARE, MEDICAID, SELFPAY ==
[2022-11-20 15:40] LABS: ALT 28 U/L (16-63); AST 22 U/L (15-37); Alkaline Phosphatase 109 U/L (46-116); Anion Gap 8.3 mmol/L (3-11); BUN 16 mg/dL (7-18); Bilirubin, Total 0.6 mg/dL (0.2-1.0); CO2 28.7 mmol/L (21.0-32.0); CREATININE 1.1 mg/dL (0.70-1.30); Calcium 9.1 mg/dL (8.5-10.1); Chloride 102 mmol/L (98-107); Estimated GFR 65.38 (mL/min/1.73m2); Glucose 146 mg/dL (74-106); Sodium 139 mmol/L (136-145); Total Protein 7.8 g/dL (6.4-8.2)
[2022-11-21 16:24] LABS: PSA, Ultrasensitive 32.7 ng/mL (<= 7.2)
[2022-11-26 11:01] LABS: Testosterone, Total 15 ng/dL (240-950)
== END 2022-11-20 12:38 | disposition home or self-care (01) ==
LOC: LBN 12:37
PROVIDERS: PCP Internal Medicine; Visit Provider Nurse Practitioner Adult Health
DX: C61 Malignant neoplasm of prostate (principal); C77.2 Secondary and unspecified malignant neoplasm of intra-abdominal lymph nodes; Z79.818 Long term (current) use of other agents affecting estrogen receptors and estrogen levels
CPT/HCPCS: 80053; 84153; 84403

== ENCOUNTER 2023-01-02 09:23 | Outpatient (REF) | payer MEDICARE, MEDICAID, SELFPAY ==
[2023-01-02 14:15] LABS: Abs Immature Grans 0.02 10^3/uL (0.0-0.06); Absolute Basophil Count 0.07 10^3/uL (0.0-0.2); Absolute Eosinophil Count 0.23 10^3/uL (0.0-0.7); Absolute Monocyte Count 0.56 10^3/uL (0.1-0.8); Absolute Neutrophil Count 3.95 10^3/uL (1.2-6.7); Eosinophils % 3.4; HGB 12.5 g/dL (13.5-17.5); Immature Grans % 0.3; Lymphocytes % 28.2; MCH 29.1 pg (27.0-33.0); MCHC 32.9 % (32.0-36.0); MCV 89 fL (80-95); MPV 11.6 fL (8.0-11.0); Monocytes % 8.3; Neutrophils % 58.8; Platelet Count 183 10^3/uL (130-400); RBC 4.29 10^6/uL (4.36-5.78); RDW 13.6 % (11.8-14.1); RDW-SD 44.3 fL; WBC 6.73 10^3/uL (4.4-10.8)
[2023-01-02 14:52] LABS: ALT 25 U/L (16-63); AST 24 U/L (15-37); Alkaline Phosphatase 115 U/L (46-116); Anion Gap 8.6 mmol/L (3-11); BUN 16 mg/dL (7-18); Bilirubin, Total 0.6 mg/dL (0.2-1.0); CO2 27.4 mmol/L (21.0-32.0); CREATININE 1.1 mg/dL (0.70-1.30); Chloride 103 mmol/L (98-107); Estimated GFR 65.38 (mL/min/1.73m2); Glucose 141 mg/dL (74-106); Sodium 139 mmol/L (136-145); TSH (W/Ref FT4) 1.98 uIU/mL (0.36-3.74); Total Protein 7.7 g/dL (6.4-8.2)
[2023-01-02 15:05] LABS: LDH 273 U/L (85-227)
== END 2023-01-02 09:24 | disposition home or self-care (01) ==
LOC: NCHCN 09:23
PROVIDERS: PCP Internal Medicine; Visit Provider Internal Medicine
DX: R41.3 Other amnesia (principal); C82.18 Follicular lymphoma grade II, lymph nodes of multiple sites; C61 Malignant neoplasm of prostate; F32.89 Other specified depressive episodes
CPT/HCPCS: 80053; 83615; 84443; 85025

== ENCOUNTER 2023-02-24 10:52 | Outpatient (REF) | payer MEDICARE, MEDICAID, SELFPAY ==
[2023-02-24 15:18] LABS: Abs Immature Grans 0.01 10^3/uL (0.0-0.06); Absolute Basophil Count 0.05 10^3/uL (0.0-0.2); Absolute Eosinophil Count 0.21 10^3/uL (0.0-0.7); Absolute Monocyte Count 0.52 10^3/uL (0.1-0.8); Absolute Neutrophil Count 4.27 10^3/uL (1.2-6.7); Basophils % 0.7; Eosinophils % 3.1; HCT 36.7 % (40.0-50.0); HGB 12.2 g/dL (13.5-17.5); Immature Grans % 0.1; Lymphocytes % 25.1; MCH 28.9 pg (27.0-33.0); MCHC 33.2 % (32.0-36.0); MCV 87 fL (80-95); MPV 11.6 fL (8.0-11.0); Monocytes % 7.7; Neutrophils % 63.3; Platelet Count 174 10^3/uL (130-400); RBC 4.22 10^6/uL (4.36-5.78); RDW 13.3 % (11.8-14.1); RDW-SD 42.2 fL; WBC 6.76 10^3/uL (4.4-10.8)
[2023-02-24 15:36] LABS: ALT 19 U/L (16-63); AST 17 U/L (15-37); Albumin 3.9 g/dL (3.4-5.0); Alkaline Phosphatase 117 U/L (46-116); Anion Gap 7.7 mmol/L (3-11); BUN 15 mg/dL (7-18); Bilirubin, Total 0.5 mg/dL (0.2-1.0); CO2 28.3 mmol/L (21.0-32.0); Calcium 8.8 mg/dL (8.5-10.1); Chloride 102 mmol/L (98-107); Glucose 123 mg/dL (74-106); Potassium 3.9 mmol/L (3.5-5.1); Sodium 138 mmol/L (136-145); Total Protein 6.8 g/dL (6.4-8.2)
[2023-02-25 16:42] LABS: PSA, Ultrasensitive 41.5 ng/mL (<= 7.2)
[2023-03-01 15:27] LABS: Testosterone, Total <7.0 ng/dL (240-950)
== END 2023-02-24 10:53 | disposition home or self-care (01) ==
LOC: LBN 10:52
PROVIDERS: PCP Internal Medicine; Visit Provider Nurse Practitioner Adult Health
DX: C77.2 Secondary and unspecified malignant neoplasm of intra-abdominal lymph nodes (principal); C61 Malignant neoplasm of prostate
CPT/HCPCS: 80053; 84153; 84403; 85025

== ENCOUNTER 2023-05-12 14:52 | Outpatient (REF) | payer MEDICARE, MEDICAID, SELFPAY ==
[2023-05-12 20:32] LABS: ALT 20 U/L (16-63); AST 15 U/L (15-37); Albumin 3.9 g/dL (3.4-5.0); Alkaline Phosphatase 112 U/L (46-116); Anion Gap 8.4 mmol/L (3-11); BUN 18 mg/dL (7-18); Bilirubin, Total 0.5 mg/dL (0.2-1.0); CO2 26.6 mmol/L (21.0-32.0); CREATININE 1.1 mg/dL (0.70-1.30); Chloride 102 mmol/L (98-107); Estimated GFR 65.38 (mL/min/1.73m2); Glucose 171 mg/dL (74-106); Potassium 4.1 mmol/L (3.5-5.1); Sodium 137 mmol/L (136-145); Total Protein 6.9 g/dL (6.4-8.2)
[2023-05-15 11:24] LABS: PSA, Ultrasensitive 72.3 ng/mL (<= 7.2)
[2023-05-17 17:23] LABS: Testosterone, Total <7.0 ng/dL (240-950)
== END 2023-05-12 14:53 | disposition home or self-care (01) ==
LOC: LBN 14:52
PROVIDERS: PCP Internal Medicine; Visit Provider Nurse Practitioner Adult Health
DX: C61 Malignant neoplasm of prostate (principal); C77.2 Secondary and unspecified malignant neoplasm of intra-abdominal lymph nodes; Z79.818 Long term (current) use of other agents affecting estrogen receptors and estrogen levels
CPT/HCPCS: 80053; 84153; 84403

== ENCOUNTER 2023-06-09 15:11 | Outpatient (CLI) | payer MEDICARE, MEDICAID, SELFPAY ==
[2023-06-09 14:47] LABS: Abs Immature Grans 0.02 10^3/uL (0.0-0.06); Absolute Basophil Count 0.04 10^3/uL (0.0-0.2); Absolute Eosinophil Count 0.22 10^3/uL (0.0-0.7); Absolute Monocyte Count 0.66 10^3/uL (0.1-0.8); Absolute Neutrophil Count 4.58 10^3/uL (1.2-6.7); Basophils % 0.5; Eosinophils % 2.9; HCT 36.3 % (40.0-50.0); HGB 12.1 g/dL (13.5-17.5); Immature Grans % 0.3; Lymphocytes % 26.6; MCHC 33.3 % (32.0-36.0); MCV 87 fL (80-95); MPV 10.5 fL (8.0-11.0); Monocytes % 8.8; Neutrophils % 60.9; Platelet Count 182 10^3/uL (130-400); RBC 4.17 10^6/uL (4.36-5.78); RDW 13.5 % (11.8-14.1); RDW-SD 42.2 fL; WBC 7.52 10^3/uL (4.4-10.8)
[2023-06-09 15:01] LABS: ALT 28 U/L (16-63); AST 18 U/L (15-37); Albumin 3.9 g/dL (3.4-5.0); Alkaline Phosphatase 119 U/L (46-116); Anion Gap 3.8 mmol/L (3-11); BUN 16 mg/dL (7-18); Bilirubin, Total 0.4 mg/dL (0.2-1.0); CO2 30.2 mmol/L (21.0-32.0); CREATININE 1.1 mg/dL (0.70-1.30); Calcium 9.3 mg/dL (8.5-10.1); Chloride 104 mmol/L (98-107); Estimated GFR 65.38 (mL/min/1.73m2); Glucose 121 mg/dL (74-106); Potassium 3.8 mmol/L (3.5-5.1); Sodium 138 mmol/L (136-145); Total Protein 7.6 g/dL (6.4-8.2)
[2023-06-12 18:58] LABS: PSA, Ultrasensitive 75.2 ng/mL (<= 7.2)
[2023-06-14 16:52] LABS: Testosterone, Total <7.0 ng/dL (240-950)
== END 2023-06-09 15:12 | disposition home or self-care (01) ==
LOC: LBO 15:11
PROVIDERS: PCP Internal Medicine; Visit Provider Nurse Practitioner Family
DX: C61 Malignant neoplasm of prostate (principal)
CPT/HCPCS: 36415; 80053; 84153; 84403; 85025

== ENCOUNTER 2023-07-01 10:44 | Outpatient (REF) | payer MEDICARE, MEDICAID, SELFPAY ==
[2023-07-01 16:16] LABS: Abs Immature Grans 0.02 10^3/uL (0.0-0.06); Absolute Basophil Count 0.05 10^3/uL (0.0-0.2); Absolute Eosinophil Count 0.17 10^3/uL (0.0-0.7); Absolute Lymphocyte Count 1.47 10^3/uL (1.2-3.4); Absolute Monocyte Count 0.42 10^3/uL (0.1-0.8); Absolute Neutrophil Count 3.78 10^3/uL (1.2-6.7); Basophils % 0.8; Eosinophils % 2.9; HCT 39.7 % (40.0-50.0); HGB 13.2 g/dL (13.5-17.5); Immature Grans % 0.3; Lymphocytes % 24.9; MCH 29.4 pg (27.0-33.0); MCHC 33.2 % (32.0-36.0); MCV 88 fL (80-95); MPV 12.1 fL (8.0-11.0); Monocytes % 7.1; Platelet Count 204 10^3/uL (130-400); RBC 4.49 10^6/uL (4.36-5.78); RDW 13.8 % (11.8-14.1); RDW-SD 44.8 fL; WBC 5.91 10^3/uL (4.4-10.8)
[2023-07-01 16:30] LABS: ALT 24 U/L (16-63); AST 20 U/L (15-37); Albumin 4.1 g/dL (3.4-5.0); Alkaline Phosphatase 114 U/L (46-116); Anion Gap 5.5 mmol/L (3-11); BUN 16 mg/dL (7-18); Bilirubin, Total 0.7 mg/dL (0.2-1.0); CO2 30.5 mmol/L (21.0-32.0); CREATININE 1.1 mg/dL (0.70-1.30); Calcium 9.5 mg/dL (8.5-10.1); Chloride 102 mmol/L (98-107); Estimated GFR 64.97 (mL/min/1.73m2); Glucose 140 mg/dL (74-106); Potassium 4.3 mmol/L (3.5-5.1); Sodium 138 mmol/L (136-145); Total Protein 7.9 g/dL (6.4-8.2)
[2023-07-01 17:14] LABS: Hemoglobin A1C 6.1 % (<5.7)
[2023-07-02 19:26] LABS: PSA, Ultrasensitive 111 ng/mL (<= 7.2)
[2023-07-06 10:03] LABS: Testosterone, Total <7.0 ng/dL (240-950)
== END 2023-07-01 10:45 | disposition home or self-care (01) ==
LOC: NCHCN 10:44
PROVIDERS: Nurse Practitioner Family; PCP Internal Medicine; Visit Provider Internal Medicine
DX: R73.03 Prediabetes (principal); C61 Malignant neoplasm of prostate
CPT/HCPCS: 80053; 84153; 84403; 83036; 85025

== ENCOUNTER 2023-07-22 04:48 | Outpatient (CLI) | payer MEDICARE, MEDICAID, SELFPAY ==
[2023-07-22 10:26] LABS: Abs Immature Grans 0.02 10^3/uL (0.0-0.06); Absolute Basophil Count 0.04 10^3/uL (0.0-0.2); Absolute Eosinophil Count 0.18 10^3/uL (0.0-0.7); Absolute Lymphocyte Count 1.49 10^3/uL (1.2-3.4); Absolute Monocyte Count 0.48 10^3/uL (0.1-0.8); Basophils % 0.6; Eosinophils % 2.7; HCT 37.4 % (40.0-50.0); HGB 12.5 g/dL (13.5-17.5); Immature Grans % 0.3; Lymphocytes % 22.5; MCH 29.1 pg (27.0-33.0); MCHC 33.4 % (32.0-36.0); MCV 87 fL (80-95); MPV 10.8 fL (8.0-11.0); Monocytes % 7.3; Neutrophils % 66.6; Platelet Count 181 10^3/uL (130-400); RBC 4.29 10^6/uL (4.36-5.78); RDW 13.7 % (11.8-14.1); RDW-SD 43.6 fL; WBC 6.61 10^3/uL (4.4-10.8)
[2023-07-22 10:42] LABS: ALT 24 U/L (16-63); AST 18 U/L (15-37); Albumin 3.8 g/dL (3.4-5.0); Alkaline Phosphatase 103 U/L (46-116); Anion Gap 6.3 mmol/L (3-11); BUN 14 mg/dL (7-18); Bilirubin, Total 0.6 mg/dL (0.2-1.0); CO2 29.7 mmol/L (21.0-32.0); CREATININE 0.9 mg/dL (0.70-1.30); Calcium 9.1 mg/dL (8.5-10.1); Chloride 102 mmol/L (98-107); Estimated GFR 82.66 (mL/min/1.73m2); Glucose 120 mg/dL (74-106); Potassium 3.9 mmol/L (3.5-5.1); Sodium 138 mmol/L (136-145); Total Protein 7.3 g/dL (6.4-8.2)
[2023-07-23 19:35] LABS: PSA, Ultrasensitive 122 ng/mL (<= 7.2)
[2023-07-26 15:45] LABS: Testosterone, Total <7.0 ng/dL (240-950)
== END 2023-07-22 04:49 | disposition home or self-care (01) ==
PROVIDERS: PCP Internal Medicine; Visit Provider Nurse Practitioner Family
DX: C61 Malignant neoplasm of prostate (principal); C77.2 Secondary and unspecified malignant neoplasm of intra-abdominal lymph nodes
CPT/HCPCS: 36415; 80053; 84153; 84403; 85025

== ENCOUNTER 2023-08-06 10:21 | Outpatient (REF) | payer MEDICARE, MEDICAID, SELFPAY ==
[2023-08-06 14:19] LABS: Abs Immature Grans 0.01 10^3/uL (0.0-0.06); Absolute Basophil Count 0.04 10^3/uL (0.0-0.2); Absolute Eosinophil Count 0.19 10^3/uL (0.0-0.7); Absolute Lymphocyte Count 1.35 10^3/uL (1.2-3.4); Absolute Monocyte Count 0.41 10^3/uL (0.1-0.8); Basophils % 0.7; Eosinophils % 3.4; HCT 36.6 % (40.0-50.0); HGB 12.2 g/dL (13.5-17.5); Immature Grans % 0.2; Lymphocytes % 24.1; MCH 29.2 pg (27.0-33.0); MCHC 33.3 % (32.0-36.0); MCV 88 fL (80-95); MPV 11.4 fL (8.0-11.0); Monocytes % 7.3; Neutrophils % 64.3; Platelet Count 180 10^3/uL (130-400); RBC 4.18 10^6/uL (4.36-5.78); RDW 13.8 % (11.8-14.1); RDW-SD 44.7 fL
[2023-08-06 14:30] LABS: ALT 21 U/L (16-63); AST 16 U/L (15-37); Albumin 3.9 g/dL (3.4-5.0); Alkaline Phosphatase 104 U/L (46-116); Anion Gap 3.2 mmol/L (3-11); BUN 15 mg/dL (7-18); Bilirubin, Total 0.4 mg/dL (0.2-1.0); CO2 29.8 mmol/L (21.0-32.0); Calcium 9.2 mg/dL (8.5-10.1); Chloride 104 mmol/L (98-107); Estimated GFR 72.84 (mL/min/1.73m2); Glucose 162 mg/dL (74-106); Potassium 3.7 mmol/L (3.5-5.1); Sodium 137 mmol/L (136-145); Total Protein 7.4 g/dL (6.4-8.2)
[2023-08-08 09:55] LABS: PSA, Ultrasensitive 132 ng/mL (<= 7.2)
[2023-08-10 09:46] LABS: Testosterone, Total <7.0 ng/dL (240-950)
== END 2023-08-06 10:22 | disposition home or self-care (01) ==
LOC: LBN 10:21
PROVIDERS: PCP Internal Medicine; Visit Provider Nurse Practitioner Family
DX: C61 Malignant neoplasm of prostate (principal); C77.2 Secondary and unspecified malignant neoplasm of intra-abdominal lymph nodes
CPT/HCPCS: 80053; 84153; 84403; 85025

== ENCOUNTER 2023-09-08 10:14 | Outpatient (REF) | payer MEDICARE, MEDICAID, SELFPAY ==
[2023-09-08 14:46] LABS: Abs Immature Grans 0.02 10^3/uL (0.0-0.06); Absolute Basophil Count 0.06 10^3/uL (0.0-0.2); Absolute Eosinophil Count 0.19 10^3/uL (0.0-0.7); Absolute Lymphocyte Count 1.23 10^3/uL (1.2-3.4); Absolute Monocyte Count 0.38 10^3/uL (0.1-0.8); Absolute Neutrophil Count 4.31 10^3/uL (1.2-6.7); Eosinophils % 3.1; HCT 36.2 % (40.0-50.0); HGB 11.9 g/dL (13.5-17.5); Immature Grans % 0.3; Lymphocytes % 19.9; MCHC 32.9 % (32.0-36.0); MCV 88 fL (80-95); MPV 11.2 fL (8.0-11.0); Monocytes % 6.1; Neutrophils % 69.6; Platelet Count 179 10^3/uL (130-400); RDW 13.7 % (11.8-14.1); RDW-SD 44.4 fL; WBC 6.19 10^3/uL (4.4-10.8)
[2023-09-08 14:51] LABS: ALT 15 U/L (16-63); AST 20 U/L (15-37); Albumin 3.6 g/dL (3.4-5.0); Alkaline Phosphatase 105 U/L (46-116); Anion Gap 7.5 mmol/L (3-11); BUN 15 mg/dL (7-18); Bilirubin, Total 0.4 mg/dL (0.2-1.0); CO2 28.5 mmol/L (21.0-32.0); Calcium 8.7 mg/dL (8.5-10.1); Chloride 106 mmol/L (98-107); Estimated GFR 72.84 (mL/min/1.73m2); Glucose 125 mg/dL (74-106); Potassium 3.9 mmol/L (3.5-5.1); Sodium 142 mmol/L (136-145); Total Protein 7.1 g/dL (6.4-8.2)
[2023-09-09 19:00] LABS: PSA, Ultrasensitive 90.2 ng/mL (<= 7.2)
[2023-09-13 16:43] LABS: Testosterone, Total <7.0 ng/dL (240-950)
== END 2023-09-08 10:15 | disposition home or self-care (01) ==
LOC: LBN 10:14
PROVIDERS: PCP Internal Medicine; Referring Provider Nurse Practitioner Family; Visit Provider Nurse Practitioner Family
DX: C61 Malignant neoplasm of prostate (principal); C77.2 Secondary and unspecified malignant neoplasm of intra-abdominal lymph nodes
CPT/HCPCS: 80053; 84153; 84403; 85025

== ENCOUNTER 2023-10-19 14:19 | Outpatient (REF) | payer MEDICARE, MEDICAID, SELFPAY ==
[2023-10-19 15:23] LABS: Abs Immature Grans 0.02 10^3/uL (0.0-0.06); Absolute Basophil Count 0.04 10^3/uL (0.0-0.2); Absolute Eosinophil Count 0.14 10^3/uL (0.0-0.7); Absolute Lymphocyte Count 1.56 10^3/uL (1.2-3.4); Absolute Monocyte Count 0.45 10^3/uL (0.1-0.8); Absolute Neutrophil Count 3.36 10^3/uL (1.2-6.7); Basophils % 0.7; Eosinophils % 2.5; HCT 38.1 % (40.0-50.0); HGB 12.6 g/dL (13.5-17.5); Immature Grans % 0.4; MCH 29.3 pg (27.0-33.0); MCHC 33.1 % (32.0-36.0); MCV 89 fL (80-95); MPV 11.5 fL (8.0-11.0); Monocytes % 8.1; Neutrophils % 60.3; Platelet Count 169 10^3/uL (130-400); RDW 13.7 % (11.8-14.1); RDW-SD 44.3 fL; WBC 5.57 10^3/uL (4.4-10.8)
[2023-10-19 15:40] LABS: ALT 15 U/L (16-63); AST 15 U/L (15-37); Albumin 3.6 g/dL (3.4-5.0); Alkaline Phosphatase 105 U/L (46-116); Anion Gap 9.4 mmol/L (3-11); BUN 20 mg/dL (7-18); Bilirubin, Total 0.6 mg/dL (0.2-1.0); CO2 28.6 mmol/L (21.0-32.0); CREATININE 0.9 mg/dL (0.70-1.30); Calcium 8.5 mg/dL (8.5-10.1); Chloride 105 mmol/L (98-107); Estimated GFR 82.66 (mL/min/1.73m2); Glucose 101 mg/dL (74-106); Potassium 3.6 mmol/L (3.5-5.1); Sodium 143 mmol/L (136-145)
[2023-10-20 21:16] LABS: PSA, Ultrasensitive 44.1 ng/mL (<= 7.2)
[2023-10-22 17:16] LABS: Testosterone, Total <7.0 ng/dL (240-950)
== END 2023-10-19 14:20 | disposition home or self-care (01) ==
LOC: LBN 14:19
PROVIDERS: PCP Internal Medicine; Visit Provider Nurse Practitioner Family
DX: C61 Malignant neoplasm of prostate (principal); C77.2 Secondary and unspecified malignant neoplasm of intra-abdominal lymph nodes
CPT/HCPCS: 80053; 84153; 84403; 85025

== ENCOUNTER → 2023-10-27 14:10 | Outpatient (CLI) | payer MEDICARE, MEDICAID, SELFPAY ==
--- NOTE | 2023-10-27 | DI.US_ITS ---
Exam(s) US LOWER EXTREMITY VENOUS LT EXAM: US LOWER EXTREMITY VENOUS LT CLINICAL HISTORY: Swelling R60.9,assess for DVT left leg, Malig neop of prostate C61. TECHNIQUE: Lower extremity venous ultrasound performed using grayscale, color-flow, and spectral Do ppler analysis. COMPARISON: No exams were available for comparison FINDINGS: The common femoral, femoral and popliteal veins demonstrate normal compressibility, augmentation, and color Doppler. The posterior tibial veins are patent. No saphenous vein thrombosis or other superfi cial venous thrombosis is seen. No hematoma or Clarke's cyst is seen. IMPRESSION: Negative lower extremity ultrasound. No evidence of DVT. DATA REPOSITORY:
== END ==
PROVIDERS: PCP Internal Medicine; Visit Provider Nurse Practitioner
DX: R60.0 Localized edema (principal); M79.662 Pain in left lower leg; C61 Malignant neoplasm of prostate
CPT/HCPCS: 93971

== ENCOUNTER 2023-12-01 14:25 | Outpatient (REF) | payer MEDICARE, MEDICAID, SELFPAY ==
[2023-12-01 15:36] LABS: Abs Immature Grans 0.02 10^3/uL (0.0-0.06); Absolute Basophil Count 0.03 10^3/uL (0.0-0.2); Absolute Lymphocyte Count 1.56 10^3/uL (1.2-3.4); Absolute Monocyte Count 0.43 10^3/uL (0.1-0.8); Absolute Neutrophil Count 3.38 10^3/uL (1.2-6.7); Basophils % 0.5 %; Eosinophils % 1.8 %; HCT 37.3 % (40.0-50.0); HGB 12.6 g/dL (13.5-17.5); Immature Grans % 0.4 %; Lymphocytes % 28.3 %; MCH 29.6 pg (27.0-33.0); MCHC 33.8 % (32.0-36.0); MCV 88 fL (80-95); MPV 11.8 fL (8.0-11.0); Monocytes % 7.8 %; Neutrophils % 61.2 %; Platelet Count 173 10^3/uL (130-400); RBC 4.26 10^6/uL (4.36-5.78); RDW 13.6 % (11.8-14.1); RDW-SD 43.9 fL; WBC 5.52 10^3/uL (4.4-10.8)
[2023-12-01 16:31] LABS: ALT 19 U/L (16-63); AST 21 U/L (15-37); Albumin 3.9 g/dL (3.4-5.0); Alkaline Phosphatase 113 U/L (46-116); Anion Gap 7.6 mmol/L (3-11); BUN 18 mg/dL (7-18); Bilirubin, Total 0.5 mg/dL (0.2-1.0); CO2 28.4 mmol/L (21.0-32.0); CREATININE 0.8 mg/dL (0.70-1.30); Chloride 105 mmol/L (98-107); Estimated GFR 85.65 (mL/min/1.73m2); Glucose 95 mg/dL (74-106); Sodium 141 mmol/L (136-145); Total Protein 7.3 g/dL (6.4-8.2)
[2023-12-03 18:13] LABS: PSA, Ultrasensitive 33.8 ng/mL (<= 7.2)
[2023-12-08 02:37] LABS: Testosterone, Total <7.0 ng/dL (240-950)
== END 2023-12-01 14:26 | disposition home or self-care (01) ==
LOC: LBN 14:25
PROVIDERS: PCP Internal Medicine; Visit Provider Internal Medicine
DX: C61 Malignant neoplasm of prostate (principal)
CPT/HCPCS: 80053; 84153; 84403; 85025

== ENCOUNTER 2024-01-12 15:20 | Outpatient (REF) | payer MEDICARE, MEDICAID, SELFPAY ==
[2024-01-12 15:26] LABS: Abs Immature Grans 0.02 10^3/uL (0.0-0.06); Absolute Basophil Count 0.04 10^3/uL (0.0-0.2); Absolute Eosinophil Count 0.11 10^3/uL (0.0-0.7); Absolute Lymphocyte Count 1.56 10^3/uL (1.2-3.4); Absolute Neutrophil Count 3.39 10^3/uL (1.2-6.7); Basophils % 0.7 %; HCT 38.8 % (40.0-50.0); Immature Grans % 0.4 %; Lymphocytes % 28.3 %; MCH 29.3 pg (27.0-33.0); MCHC 33.5 % (32.0-36.0); MCV 87 fL (80-95); MPV 11.4 fL (8.0-11.0); Monocytes % 7.2 %; Neutrophils % 61.4 %; Platelet Count 172 10^3/uL (130-400); RBC 4.44 10^6/uL (4.36-5.78); RDW 13.4 % (11.8-14.1); RDW-SD 43.2 fL; WBC 5.52 10^3/uL (4.4-10.8)
[2024-01-12 15:33] LABS: LDH 255 U/L (85-227)
[2024-01-12 15:43] LABS: ALT 18 U/L (16-63); AST 14 U/L (15-37); Albumin 4.1 g/dL (3.4-5.0); Alkaline Phosphatase 113 U/L (46-116); Anion Gap 7.3 mmol/L (3-11); BUN 14 mg/dL (7-18); Bilirubin, Total 0.62 mg/dL (0.2-1.0); CO2 29.7 mmol/L (21.0-32.0); CREATININE 0.8 mg/dL (0.70-1.30); Chloride 104 mmol/L (98-107); Estimated GFR 85.65 (mL/min/1.73m2); Glucose 102 mg/dL (74-106); Potassium 4.3 mmol/L (3.5-5.1); Sodium 141 mmol/L (136-145); Total Protein 7.2 g/dL (6.4-8.2)
[2024-01-14 10:35] LABS: PSA, Ultrasensitive 27.5 ng/mL (<= 7.2)
[2024-01-16 15:55] LABS: Testosterone, Total <7.0 ng/dL (240-950)
== END 2024-01-12 15:21 | disposition home or self-care (01) ==
LOC: LBN 15:20
PROVIDERS: Internal Medicine Hematology & Oncology; PCP Internal Medicine; Visit Provider Internal Medicine
DX: C61 Malignant neoplasm of prostate (principal); C77.2 Secondary and unspecified malignant neoplasm of intra-abdominal lymph nodes
CPT/HCPCS: 80053; 84153; 84403; 83615; 85025

== ENCOUNTER 2024-02-29 22:12 | Outpatient (REF) | payer MEDICARE, MEDICAID, SELFPAY ==
[2024-02-29 22:25] LABS: Abs Immature Grans 0.02 10^3/uL (0.0-0.06); Absolute Basophil Count 0.05 10^3/uL (0.0-0.2); Absolute Eosinophil Count 0.24 10^3/uL (0.0-0.7); Absolute Lymphocyte Count 1.59 10^3/uL (1.2-3.4); Absolute Neutrophil Count 3.59 10^3/uL (1.2-6.7); Basophils % 0.8 %; HGB 12.2 g/dL (13.5-17.5); Immature Grans % 0.3 %; Lymphocytes % 26.5 %; MCH 29.7 pg (27.0-33.0); MCHC 33.9 % (32.0-36.0); MCV 88 fL (80-95); MPV 11.7 fL (8.0-11.0); Monocytes % 8.3 %; Neutrophils % 60.1 %; Platelet Count 174 10^3/uL (130-400); RBC 4.11 10^6/uL (4.36-5.78); RDW 13.2 % (11.8-14.1); RDW-SD 42.8 fL; WBC 5.99 10^3/uL (4.4-10.8)
[2024-02-29 22:37] LABS: ALT 15 U/L (16-63); AST 14 U/L (15-37); Albumin 3.7 g/dL (3.4-5.0); Alkaline Phosphatase 118 U/L (46-116); Anion Gap 6.2 mmol/L (3-11); BUN 14 mg/dL (7-18); Bilirubin, Total 0.38 mg/dL (0.2-1.0); CO2 28.8 mmol/L (21.0-32.0); CREATININE 0.9 mg/dL (0.70-1.30); Calcium 8.8 mg/dL (8.5-10.1); Chloride 105 mmol/L (98-107); Estimated GFR 82.66 (mL/min/1.73m2); Glucose 136 mg/dL (74-106); Sodium 140 mmol/L (136-145); Total Protein 6.6 g/dL (6.4-8.2)
[2024-03-03 16:27] LABS: PSA, Ultrasensitive 19.6 ng/mL (<= 7.2)
[2024-03-06 12:51] LABS: Testosterone, Total <7.0 ng/dL (240-950)
== END 2024-02-29 22:13 | disposition home or self-care (01) ==
LOC: LBN 22:12
PROVIDERS: PCP Internal Medicine; Visit Provider Internal Medicine
DX: C61 Malignant neoplasm of prostate (principal)
CPT/HCPCS: 80053; 84153; 84403; 85025

== ENCOUNTER 2024-05-24 15:33 | Outpatient (REF) | payer MEDICARE, MEDICAID, SELFPAY ==
[2024-05-24 18:13] LABS: HCT 38.8 % (40.0-50.0); HGB 12.9 g/dL (13.5-17.5); MCH 29.8 pg (27.0-33.0); MCHC 33.2 % (32.0-36.0); MCV 90 fL (80-95); MPV 11.8 fL (8.0-11.0); Platelet Count 180 10^3/uL (130-400); RBC 4.33 10^6/uL (4.36-5.78); RDW 13.3 % (11.8-14.1); RDW-SD 44.2 fL
[2024-05-24 20:47] LABS: ALT 19 U/L (16-63); AST 15 U/L (15-37); Albumin 3.8 g/dL (3.4-5.0); Alkaline Phosphatase 116 U/L (46-116); Anion Gap 5.9 mmol/L (3-11); BUN 17 mg/dL (7-18); Bilirubin, Total 0.58 mg/dL (0.2-1.0); CO2 31.1 mmol/L (21.0-32.0); Calcium 8.9 mg/dL (8.5-10.1); Chloride 104 mmol/L (98-107); Estimated GFR 72.84 (mL/min/1.73m2); Glucose 97 mg/dL (74-106); Potassium 4.1 mmol/L (3.5-5.1); Sodium 141 mmol/L (136-145)
[2024-05-26 19:42] LABS: PSA, Ultrasensitive 13.7 ng/mL (<= 7.2)
[2024-05-28 18:12] LABS: Testosterone, Total <7.0 ng/dL (240-950)
== END 2024-05-24 15:34 | disposition home or self-care (01) ==
LOC: LBN 15:33
PROVIDERS: PCP Internal Medicine; Visit Provider Internal Medicine
DX: C61 Malignant neoplasm of prostate (principal)
CPT/HCPCS: 80053; 84153; 84403; 85027

== ENCOUNTER 2024-08-09 14:00 | Outpatient (REF) | payer MEDICARE, MEDICAID, SELFPAY ==
[2024-08-09 15:02] LABS: Abs Immature Grans 0.02 10^3/uL (0.0-0.06); Absolute Basophil Count 0.02 10^3/uL (0.0-0.2); Absolute Eosinophil Count 0.07 10^3/uL (0.0-0.7); Absolute Lymphocyte Count 1.05 10^3/uL (1.2-3.4); Absolute Monocyte Count 0.59 10^3/uL (0.1-0.8); Absolute Neutrophil Count 5.69 10^3/uL (1.2-6.7); Basophils % 0.3 %; Eosinophils % 0.9 %; HCT 32.5 % (40.0-50.0); HGB 10.7 g/dL (13.5-17.5); Immature Grans % 0.3 %; Lymphocytes % 14.1 %; MCH 29.2 pg (27.0-33.0); MCHC 32.9 % (32.0-36.0); MCV 89 fL (80-95); MPV 11.5 fL (8.0-11.0); Monocytes % 7.9 %; Neutrophils % 76.5 %; Platelet Count 251 10^3/uL (130-400); RBC 3.67 10^6/uL (4.36-5.78); RDW 12.8 % (11.8-14.1); WBC 7.44 10^3/uL (4.4-10.8)
[2024-08-09 15:34] LABS: ALT 22 U/L (16-63); AST 25 U/L (15-37); Alkaline Phosphatase 117 U/L (46-116); Anion Gap 4.1 mmol/L (3-11); BUN 14 mg/dL (7-18); Bilirubin, Total 0.52 mg/dL (0.2-1.0); CO2 30.9 mmol/L (21.0-32.0); Calcium 9.2 mg/dL (8.5-10.1); Chloride 102 mmol/L (98-107); Estimated GFR 72.39 (mL/min/1.73m2); Glucose 146 mg/dL (74-106); LDH 303 U/L (85-227); Sodium 137 mmol/L (136-145); Total Protein 7.3 g/dL (6.4-8.2)
[2024-08-09 16:31] LABS: C-Reactive Protein 16.84 mg/dL (<or=0.5); Uric Acid 3.1 mg/dL (3.5-7.2)
[2024-08-10 17:39] LABS: PSA, Ultrasensitive 11.3 ng/mL (<= 7.2)
[2024-08-15 14:42] LABS: Testosterone, Total <7.0 ng/dL (240-950)
== END 2024-08-09 14:01 | disposition home or self-care (01) ==
LOC: NCHCN 14:00
PROVIDERS: Nurse Practitioner Adult Health; PCP Internal Medicine; Visit Provider Family Medicine
DX: C61 Malignant neoplasm of prostate (principal); C82.18 Follicular lymphoma grade II, lymph nodes of multiple sites; Z87.39 Personal history of other diseases of the musculoskeletal system and connective tissue; M25.59 Pain in other specified joint
CPT/HCPCS: 80053; 84153; 84403; 83615; 84550; 85025; 86140

== ENCOUNTER 2024-08-29 15:28 | Outpatient (REF) | payer MEDICARE, MEDICAID, SELFPAY ==
[2024-08-29 21:22] LABS: ESR 47 mm/hr (0-20)
[2024-08-29 21:30] LABS: C-Reactive Protein 8.66 mg/dL (<or=0.5)
[2024-08-31 09:30] LABS: Cyclic Citrullinated Peptide <2.5 U/mL (<5.0)
[2024-08-31 09:54] LABS: Lyme Ab w Rflx to Lyme Confirm Negative (Negative)
== END 2024-08-29 15:29 | disposition home or self-care (01) ==
LOC: NCHCN 15:28
PROVIDERS: PCP Internal Medicine; Visit Provider Internal Medicine
DX: M25.59 Pain in other specified joint (principal)
CPT/HCPCS: 85652; 86200; 86140; 86618

== ENCOUNTER 2024-09-15 15:32 | Outpatient (REF) | payer MEDICARE, MEDICAID, SELFPAY ==
[2024-09-15 21:23] LABS: C-Reactive Protein 0.55 mg/dL (<or=0.5)
== END 2024-09-15 15:33 | disposition home or self-care (01) ==
LOC: NCHCN 15:32
PROVIDERS: PCP Internal Medicine; Visit Provider Internal Medicine
DX: M25.59 Pain in other specified joint (principal)
CPT/HCPCS: 86140

== ENCOUNTER 2024-11-02 09:06 | Outpatient (REF) | payer MEDICARE, MEDICAID, SELFPAY ==
[2024-11-02 15:21] LABS: Uric Acid 3.9 mg/dL (3.5-7.2)
[2024-11-02 15:43] LABS: Calculated LDL 94 mg/dL (<100); Cholesterol 199 mg/dL (<200); HDL Cholesterol 64 mg/dL (>or=40); Triglyceride 208 mg/dL (<150)
== END 2024-11-02 09:07 | disposition home or self-care (01) ==
LOC: NCHCN 09:06
PROVIDERS: Nurse Practitioner Family; PCP Internal Medicine; Visit Provider Internal Medicine
DX: E78.00 Pure hypercholesterolemia, unspecified (principal)
CPT/HCPCS: 80061; 84550

== ENCOUNTER 2024-12-08 18:10 | Outpatient (REF) | payer MEDICARE, MEDICAID, SELFPAY ==
[2024-12-08 18:48] LABS: Abs Immature Grans 0.02 10^3/uL (0.0-0.06); Absolute Basophil Count 0.04 10^3/uL (0.0-0.2); Absolute Eosinophil Count 0.13 10^3/uL (0.0-0.7); Absolute Lymphocyte Count 1.76 10^3/uL (1.2-3.4); Absolute Monocyte Count 0.48 10^3/uL (0.1-0.8); Absolute Neutrophil Count 3.53 10^3/uL (1.2-6.7); Basophils % 0.7 %; Eosinophils % 2.2 %; HCT 39.8 % (40.0-50.0); Immature Grans % 0.3 %; Lymphocytes % 29.5 %; MCHC 32.7 % (32.0-36.0); MCV 89 fL (80-95); MPV 11.8 fL (8.0-11.0); Monocytes % 8.1 %; Neutrophils % 59.2 %; Platelet Count 177 10^3/uL (130-400); RBC 4.48 10^6/uL (4.36-5.78); RDW-SD 45.7 fL; WBC 5.96 10^3/uL (4.4-10.8)
[2024-12-08 18:58] LABS: ALT 16 U/L (16-63); AST 17 U/L (15-37); Albumin 3.8 g/dL (3.4-5.0); Alkaline Phosphatase 116 U/L (46-116); Anion Gap 3.7 mmol/L (3-11); BUN 13 mg/dL (7-18); Bilirubin, Total 0.6 mg/dL (0.2-1.0); CO2 31.3 mmol/L (21.0-32.0); Calcium 9.1 mg/dL (8.5-10.1); Chloride 103 mmol/L (98-107); Estimated GFR 72.39 (mL/min/1.73m2); Glucose 145 mg/dL (74-106); Sodium 138 mmol/L (136-145); Total Protein 7.3 g/dL (6.4-8.2)
[2024-12-13 13:35] LABS: PSA, Ultrasensitive 6.6 ng/mL (<= 7.2)
[2024-12-14 12:27] LABS: Testosterone, Total 8.3 ng/dL (240-950)
== END 2024-12-08 18:11 | disposition home or self-care (01) ==
LOC: LBN 18:10
PROVIDERS: PCP Internal Medicine; Visit Provider Nurse Practitioner
DX: C61 Malignant neoplasm of prostate (principal); Z79.818 Long term (current) use of other agents affecting estrogen receptors and estrogen levels
CPT/HCPCS: 80053; 84153; 84403; 85025

== ENCOUNTER 2024-12-26 18:17 | Outpatient (REF) | payer MEDICARE, MEDICAID, SELFPAY ==
[2024-12-26 15:49] LABS: BUN 13 mg/dL (7-18); CREATININE 0.9 mg/dL (0.70-1.30); Calcium 8.8 mg/dL (8.5-10.1); Chloride 103 mmol/L (98-107); Estimated GFR 82.15 (mL/min/1.73m2); Glucose 152 mg/dL (74-106); NT-proBNP 703 pg/mL (<300); Potassium 3.6 mmol/L (3.5-5.1); Sodium 140 mmol/L (136-145)
== END 2024-12-26 18:18 | disposition home or self-care (01) ==
LOC: LBN 18:17
PROVIDERS: PCP Internal Medicine; Visit Provider Nurse Practitioner Family
DX: R06.02 Shortness of breath (principal); R06.01 Orthopnea
CPT/HCPCS: 80048; 83880

== ENCOUNTER 2025-02-22 02:26 | Outpatient (CLI) | payer MEDICARE, MEDICAID, SELFPAY ==
[2025-02-22 08:05] LABS: Abs Immature Grans 0.03 10^3/uL (0.0-0.06); HCT 38.7 % (40.0-50.0); HGB 12.8 g/dL (13.5-17.5); Immature Grans % 0.3 %; MCH 28.7 pg (27.0-33.0); MCHC 33.1 % (32.0-36.0); MCV 87 fL (80-95); MPV 10.5 fL (8.0-11.0); Platelet Count 189 10^3/uL (130-400); RBC 4.46 10^6/uL (4.36-5.78); RDW 13.4 % (11.8-14.1); RDW-SD 42.6 fL; WBC 8.77 10^3/uL (4.4-10.8)
[2025-02-22 08:25] LABS: ALT 18 U/L (16-63); AST 18 U/L (15-37); Albumin 3.8 g/dL (3.4-5.0); Alkaline Phosphatase 120 U/L (46-116); Anion Gap 6.7 mmol/L (3-11); BUN 15 mg/dL (7-18); Bilirubin, Total 0.6 mg/dL (0.2-1.0); CO2 29.3 mmol/L (21.0-32.0); Calcium 8.7 mg/dL (8.5-10.1); Chloride 101 mmol/L (98-107); Estimated GFR 82.15 (mL/min/1.73m2); Glucose 134 mg/dL (74-106); Potassium 3.6 mmol/L (3.5-5.1); Sodium 137 mmol/L (136-145); Total Protein 7.4 g/dL (6.4-8.2)
[2025-02-22 09:32] LABS: LDH 191 U/L (85-227)
== END 2025-02-22 02:27 | disposition home or self-care (01) ==
LOC: LBO 02:26
PROVIDERS: Internal Medicine Hematology & Oncology; PCP Internal Medicine; Visit Provider Nurse Practitioner
DX: C61 Malignant neoplasm of prostate (principal); C82.90 Follicular lymphoma, unspecified, unspecified site
CPT/HCPCS: 36415; 80053; 84153; 84403; 83615; 85025

== ENCOUNTER 2025-03-21 10:04 | Outpatient (CLI) | payer MEDICARE, MEDICAID, SELFPAY ==
[2025-03-21 12:53] LABS: Abs Immature Grans 0.04 10^3/uL (0.0-0.06); HCT 36.3 % (40.0-50.0); HGB 12.1 g/dL (13.5-17.5); Immature Grans % 0.5 %; MCH 29.0 pg (27.0-33.0); MCHC 33.3 % (32.0-36.0); MCV 87 fL (80-95); MPV 11.0 fL (8.0-11.0); Platelet Count 197 10^3/uL (130-400); RBC 4.17 10^6/uL (4.36-5.78); RDW 13.0 % (11.8-14.1); RDW-SD 41.3 fL; WBC 7.73 10^3/uL (4.4-10.8)
[2025-03-21 13:43] LABS: ALT 19 U/L (16-63); AST 17 U/L (15-37); Albumin 3.5 g/dL (3.4-5.0); Alkaline Phosphatase 112 U/L (46-116); Anion Gap 6.4 mmol/L (3-11); BUN 13 mg/dL (7-18); Bilirubin, Total 0.5 mg/dL (0.2-1.0); CO2 29.6 mmol/L (21.0-32.0); Calcium 8.9 mg/dL (8.5-10.1); Chloride 103 mmol/L (98-107); Estimated GFR 82.15 (mL/min/1.73m2); Glucose 121 mg/dL (74-106); LDH 232 U/L (85-227); Potassium 3.8 mmol/L (3.5-5.1); Sodium 139 mmol/L (136-145); Total Protein 7.4 g/dL (6.4-8.2)
== END 2025-03-21 10:05 | disposition home or self-care (01) ==
PROVIDERS: Nurse Practitioner; PCP Internal Medicine; Visit Provider Internal Medicine Hematology & Oncology
DX: C82.90 Follicular lymphoma, unspecified, unspecified site (principal)
CPT/HCPCS: 36415; 80053; 83615; 85025

== ENCOUNTER 2025-05-24 17:34 | Outpatient (REF) | payer MEDICARE, MEDICAID, SELFPAY ==
[2025-05-24 21:39] LABS: Abs Immature Grans 0.03 10^3/uL (0.0-0.06); HCT 39.6 % (40.0-50.0); HGB 13.0 g/dL (13.5-17.5); Immature Grans % 0.4 %; MCH 28.8 pg (27.0-33.0); MCHC 32.8 % (32.0-36.0); MCV 88 fL (80-95); MPV 11.7 fL (8.0-11.0); Platelet Count 215 10^3/uL (130-400); RBC 4.51 10^6/uL (4.36-5.78); RDW 13.7 % (11.8-14.1); RDW-SD 44.1 fL; WBC 7.32 10^3/uL (4.4-10.8)
[2025-05-24 21:53] LABS: ALT 18 U/L (16-63); AST 19 U/L (15-37); Albumin 3.9 g/dL (3.4-5.0); Alkaline Phosphatase 132 U/L (46-116); Anion Gap 8.6 mmol/L (3-11); BUN 18 mg/dL (7-18); Bilirubin, Total 0.4 mg/dL (0.2-1.0); CO2 29.4 mmol/L (21.0-32.0); Calcium 8.8 mg/dL (8.5-10.1); Chloride 101 mmol/L (98-107); Glucose 107 mg/dL (74-106); Potassium 3.9 mmol/L (3.5-5.1); Sodium 139 mmol/L (136-145); Total Protein 7.9 g/dL (6.4-8.2)
== END 2025-05-24 17:35 | disposition home or self-care (01) ==
LOC: LBN 17:34
PROVIDERS: PCP Internal Medicine; Visit Provider Nurse Practitioner
DX: C61 Malignant neoplasm of prostate (principal)
CPT/HCPCS: 80053; 84153; 84403; 85025